=== PATIENT | male | born 1945 | race Caucasian/White ===

== ENCOUNTER 2019-11-07 07:55 | Emergency (ER) | payer MEDICARE, OTHER ==
[~2019-11-07] VITALS: Ht 175.3 cm; Wt 86.2 kg
--- NOTE | 2019-11-07 07:59 | NUR ---
PATIENT TO BED 12 BY EMS AT THIS TIME.
[2019-11-07 08:02] VITALS: BP 165/85
--- NOTE | 2019-11-07 08:20 | NUR ---
DR SALAS AT BEDSIDE
--- NOTE | 2019-11-07 08:50 | NUR ---
73 Y/O MALE BIBA FROM [facility] C/O BILAT LEG PAIN AND CELLULITIS X2 DAYS. WEEPING SERASANGENOUS FLUID NOTED IN BILAT LEGS. LARGE BLISTER NOTED ON RIGHT CALF.ROM+, CMS BILAT LOWER EXT. PT DENIES ANY TRAUMA TO BILAT LOWER EXT. NKA
--- NOTE | 2019-11-07 08:57 | NUR ---
PACKAGING TECHNICIAN AT BEDSIDE FOR BLOOD DRAW
[2019-11-07 09:16] LABS: BASOPHILS % (AUTO) 0.4 % (0.0-2.0); EOSINOPHILS # (AUTO) 0.2 K/uL (0-0.4); EOSINOPHILS % (AUTO) 2.4 % (0.0-4.0); HEMATOCRIT 40.5 % (36-52); HEMOGLOBIN 13.6 g/dL (12.0-18.0); LYMPHOCYTES % (AUTO) 13.1 % (20.5-51.1); MEAN CORPUSCULAR HEMOGLOBIN 31 pg (27-31); MEAN CORPUSCULAR HGB CONC 34 g/dL (33-37); MEAN CORPUSCULAR VOLUME 92.5 fL (80-94); MONOCYTES # (AUTO) 0.6 K/uL (0.8-1.0); MONOCYTES % (AUTO) 8.2 % (1.7-9.3); NEUTROPHILS # (AUTO) 5.8 K/uL (1.8-7.7); NEUTROPHILS % (AUTO) 75.9 % (42.2-75.2); PLATELET COUNT (AUTO) 297 K/uL (140-450); RED BLOOD CELL COUNT(AUTO) 4.38 MIL/uL (4.20-6.10); RED CELL DISTRIBUTION WIDTH 13.4 % (11.6-13.7); WHITE BLOOD COUNT (AUTO) 7.7 K/uL (4.8-10.8)
--- NOTE | 2019-11-07 09:18 | NUR ---
pt c/o feeling a rock underneath his bottom---heidi toro and myself rolled him to side--no rock or anything similar visualized and turned him to side
[2019-11-07 09:45] LABS: ALBUMIN 2.7 g/dL (3.4-5.0); ANION GAP 14.4 (8-16); ASPARTATE AMINOTRANSFERASE 24 U/L (15-37); CARBON DIOXIDE 24.5 mmol/L (21-32); CHLORIDE 106 mmol/L (98-107); CREATININE 0.8 mg/dL (0.6-1.3); GLUCOSE 131 mg/dL (74-106); POTASSIUM 3.9 mmol/L (3.5-5.1); SODIUM SERUM 141 mmol/L (136-145); TOTAL BILIRUBIN 0.3 mg/dL (0.0-1.0); UREA NITROGEN, BLOOD 17 mg/dL (7-18)
--- NOTE | 2019-11-07 10:34 | NUR ---
[facility] SET UP GURNEY TRANSPORTATION BACK TO [facility], CLOSEST ETA 183. INFORMED KALI CAM.
--- NOTE | 2019-11-07 11:00 | NUR ---
ROTATED PT TO SIDE-LYING POSITION, DIAPER CHANGED. VSS
--- NOTE | 2019-11-07 13:00 | NUR ---
PT ROTATED ONTO BACK AND POSITIONED FOR COMFORT. VSS. DIAPER IS DRY.
--- NOTE | 2019-11-07 16:00 | NUR ---
PT PLACED ON RIGHT SIDE LYING POSITION, VSS, DIAPER CHANGED.
--- NOTE | 2019-11-07 17:00 | NUR ---
PT C/O BODY PAIN, MARÍA SALAS NOTIFIED, TYLENOL ORDERED AND CARRIED OUT
--- NOTE | 2019-11-07 17:49 | NUR ---
CONTACTED [facility] FOR UPDATED ETA. S/W JONH UPDATED ETA IS
[2019-11-07] MEDS: ACETAMINOPHEN EXTRA STRENGTH 500 MG TAB PO ONE (17:53)
--- NOTE | 2019-11-07 19:18 | NUR ---
RECIEVED REPORT FROM TUTU BASS. TRANSFER OF CARE AT THIS TIME.
--- NOTE | 2019-11-07 19:23 | NUR ---
Pt report given to LENORE CAM. Transfer of care at this time.
--- NOTE | 2019-11-07 19:30 | NUR ---
PT SLEEPING IN BED. EQUAL CHEST RISE AND FALL. GALLEY HAND IN PLACE. BED LOCKED AND IN LOWEST POSITION. SIDE RAILS X2.
--- NOTE | 2019-11-07 20:15 | NUR ---
PTS DIAPER CHANGED AND PT POSITIONED FOR COMFORT. ALL PT NEEDS MET AT THIS TIME.
--- NOTE | 2019-11-07 20:35 | NUR ---
Note ana m in EDM - 11/07/19 at 2044 by MEDWQ SPOKE WITH HAO FROM [facility] TO LET HER KNOW THAT THE PT IS BEING PICKED UP BY TRANSPORT. HAO MADE ME AWARE THAT THEY WILL NOT TAKE PTS BACK WITHOUT FIRST BEING SWABBED FOR COVID. MARÍA MADE AWARE. PT SWABBED FOR COVID AND SWAB SENT TO LAB.
--- NOTE | 2019-11-07 20:35 | NUR ---
SPOKE WITH HAO FROM [facility] TO LET HER KNOW THAT THE PT IS BEING PICKED UP BY TRANSPORT. HAO MADE ME AWARE THAT THEY WILL NOT TAKE PTS BACK WITHOUT FIRST BEING SWABBED FOR COVID. MARÍA MADE AWARE. PT SWABBED FOR COVID AND SWAB SENT TO LAB.
--- NOTE | 2019-11-07 20:39 | NUR ---
PT TAKEN BY DARLIN GUPTA
[2019-11-07 20:40] VITALS: BP 149/82
--- NOTE | 2019-11-07 20:40 | NUR ---
Patient discharged with v/s stable. Written and verbal after care instructions given and explained. Patient alert, oriented and verbalized understanding of instructions. Ambulance Transport with to retirement. All questions addressed prior to discharge. ID band removed. Patient advised to follow up with PMD. Rx of KEFLEX given. Patient educated on indication of medication including possible reaction and side effects. Opportunity to ask questions provided and answered.
--- NOTE | 2019-11-11 10:31 | NUR ---
Covid-19 result shows not detected. Copy of results given to Isela at infection control
== END 2019-11-07 20:40 | disposition home or self-care (01) ==
LOC: MED 07:55
DX: L03.115 Cellulitis of right lower limb (principal); J45.909 Unspecified asthma, uncomplicated; Z20.828 Contact with and (suspected) exposure to other viral communicable diseases
CPT/HCPCS: 36415; 80053; 85025; 85610; 85730; 99283; U0003

== ENCOUNTER 2020-01-05 09:20 | Emergency (ER) | payer MEDICARE, OTHER ==
[~2020-01-05] VITALS: Ht 167.6 cm; Wt 84.4 kg
[2020-01-05 09:22] VITALS: BP 143/71
[2020-01-05] MEDS ORDERED: MYCC TP (09:33)
[2020-01-05] MEDS ORDERED: VITA PO (09:33)
[2020-01-05] MEDS ORDERED: KETO2CRE3 TP (09:33)
[2020-01-05] MEDS ORDERED: FLONAS NS (09:33)
[2020-01-05] MEDS ORDERED: HYD1C TP (09:33)
[2020-01-05] MEDS ORDERED: BACL10TA4 PO (09:33)
[2020-01-05] MEDS ORDERED: FURO-572 PO (09:33)
[2020-01-05] MEDS ORDERED: DOCU-299 PO (09:33)
[2020-01-05] MEDS ORDERED: POTA10TE30 PO (09:33)
[2020-01-05] MEDS ORDERED: CALC-1030 PO (09:33)
[2020-01-05] MEDS ORDERED: BACTO TP (09:33)
[2020-01-05] MEDS ORDERED: SENN8.8S7 PO (09:33)
[2020-01-05] MEDS ORDERED: LORA10TA19 PO (09:33)
[2020-01-05] MEDS ORDERED: ACET-9882 PO (09:33)
[2020-01-05] MEDS ORDERED: B-CO1TAB3 PO (09:33)
[2020-01-05] MEDS ORDERED: FINA5TAB1 PO (09:33)
[2020-01-05] MEDS ORDERED: PHEN10TA PO (09:33)
[2020-01-05] MEDS ORDERED: TAMS0.4C96 PO (09:33)
[2020-01-05 11:06] LABS: RSV NEGATIVE (NEGATIVE)
[2020-01-05 11:31] LABS: BASOPHILS % (AUTO) 0.8 % (0.0-2.0); EOSINOPHILS % (AUTO) 0.8 % (0.0-4.0); HEMATOCRIT 43.8 % (36-52); HEMOGLOBIN 14.6 g/dL (12.0-18.0); LYMPHOCYTES # (AUTO) 0.6 K/uL (2.0-11.5); LYMPHOCYTES % (AUTO) 10.8 % (20.5-51.1); MEAN CORPUSCULAR HEMOGLOBIN 31 pg (27-31); MEAN CORPUSCULAR HGB CONC 33 g/dL (33-37); MEAN CORPUSCULAR VOLUME 92.5 fL (80-94); MONOCYTES # (AUTO) 0.5 K/uL (0.8-1.0); MONOCYTES % (AUTO) 9.2 % (1.7-9.3); NEUTROPHILS # (AUTO) 4.1 K/uL (1.8-7.7); NEUTROPHILS % (AUTO) 78.4 % (42.2-75.2); PLATELET COUNT (AUTO) 206 K/uL (140-450); RED BLOOD CELL COUNT(AUTO) 4.73 MIL/uL (4.20-6.10); RED CELL DISTRIBUTION WIDTH 13.7 % (11.6-13.7); WHITE BLOOD COUNT (AUTO) 5.2 K/uL (4.8-10.8)
[2020-01-05 11:46] LABS: ALBUMIN 3.2 g/dL (3.4-5.0); ANION GAP 12.2 (8-16); ASPARTATE AMINOTRANSFERASE 18 U/L (15-37); CARBON DIOXIDE 26.6 mmol/L (21-32); CHLORIDE 104 mmol/L (98-107); CREATININE 1.1 mg/dL (0.6-1.3); GLUCOSE 173 mg/dL (74-106); POTASSIUM 3.8 mmol/L (3.5-5.1); SODIUM SERUM 139 mmol/L (136-145); TOTAL BILIRUBIN 0.4 mg/dL (0.0-1.0); UREA NITROGEN, BLOOD 14 mg/dL (7-18)
[2020-01-05 11:56] LABS: C-REACTIVE PROTEIN QUANT 1.4 mg/dL (0.0-0.9)
[2020-01-05 12:04] LABS: LACTATE DEHYDROGENASE 179 U/L (85-227)
[2020-01-05 13:33] VITALS: BP 126/72
== END 2020-01-05 13:33 | disposition home or self-care (01) ==
LOC: MED 09:20
DX: R06.02 Shortness of breath (principal); J45.901 Unspecified asthma with (acute) exacerbation; R56.9 Unspecified convulsions; Z79.899 Other long term (current) drug therapy
CPT/HCPCS: 36415; 71045; 80053; 82550; 82728; 83605; 83615; 83880; 84484; 85025; 85384; 86140; 87040; 87420; 87426; 87804; 93005; 99285; Q0092

== ENCOUNTER 2020-02-12 12:51 | Emergency (ER) | payer MEDICARE ==
[~2020-02-12] VITALS: Ht 157.5 cm; Wt 68.0 kg
[~2020-02-12 12:51] MED LIST: ACET-9882 PO; B-CO1TAB3 PO; BACL10TA4 PO; BACTO TP; CALC-1030 PO; DOCU-299 PO; FINA5TAB1 PO; FLONAS NS; FURO-572 PO; HYD1C TP; KETO2CRE3 TP; LORA10TA19 PO; MYCC TP; PHEN10TA PO; POTA10TE30 PO; SENN8.8S7 PO; TAMS0.4C96 PO; VITA PO
[2020-02-12 12:53] VITALS: BP 116/65
--- NOTE | 2020-02-12 13:12 | NUR ---
covering for primary RN: Scarlet from [facility] w c/o r leg pain x today. Pt states his right knee hurts when he bends it. Pt denies any recent falls or trauma. No obvious deformity, redness, swelling etc noted to R knee. Pt denies chest pain/sob. Bed in low position, side rail up x2 for patient saftey. Pt placed on bedside drawstring knotter.
--- NOTE | 2020-02-12 13:26 | NUR ---
Dr. Nickerson evaluating pt at bedside
[2020-02-12] MEDS ORDERED: KETOROLAC 60 MG/2 ML VIAL IM ONE (13:30)
--- NOTE | 2020-02-12 13:33 | NUR ---
60 mg Toradol administered IM as ordered; pt denies hx kidney disease.
--- NOTE | 2020-02-12 13:38 | NUR ---
Spoke with Ghazal in regards for pt transfer back to facility. Per Ghazal, no transportation available & no family is available to pick pt up.
--- NOTE | 2020-02-12 14:12 | NUR ---
Dr. Nickerson re-evaluating pt at bedside.
[2020-02-12] MEDS ORDERED: MORPHINE SULFATE 4 MG/ML SYR IM ONE (14:15)
--- NOTE | 2020-02-12 17:43 | NUR ---
Patient resting in bed, awake & alert. Remains on bedside monitor, VSS.
--- NOTE | 2020-02-12 19:08 | NUR ---
RECEIVED REPORT FROM TUTU DYKES FOR CONTINUITY OF CARE.
--- NOTE | 2020-02-12 19:09 | NUR ---
PT RESTING IN BED, RR EVEN AND UNLABORED. 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 NO NEW CONCERNS AT THIS TIME. BED LOCKED AND IN LOWEST POSITION, SIDE RAIL UPX1. WILL CONTINUE TO MONITOR.
--- NOTE | 2020-02-12 19:29 | NUR ---
[facility] AT BEDSIDE
--- NOTE | 2020-02-12 19:35 | NUR ---
Patient discharged with v/s stable. Written and verbal after care instructions given and explained. Patient alert, oriented and verbalized understanding of instructions. Ambulance Transport with to half-way. All questions addressed prior to discharge. ID band removed. Patient advised to follow up with PMD. Rx of MOTRIN AND NORCO given. Patient educated on indication of medication including possible reaction and side effects. Opportunity to ask questions provided and answered.
[2020-02-12 19:40] VITALS: BP 123/75
== END 2020-02-12 19:35 | disposition home or self-care (01) ==
LOC: MED 12:51
DX: M25.561 Pain in right knee (principal); J45.909 Unspecified asthma, uncomplicated; R56.9 Unspecified convulsions; Z79.899 Other long term (current) drug therapy
CPT/HCPCS: 96372; 99285; J1885; J2270; 99284